=== PATIENT | female | born 1940 | race Caucasian/White ===

== ENCOUNTER 2019-02-02 06:25 | Inpatient (IN) ==
[2019-01-28 13:05] LABS: Basophils # 0.1 10*3/uL (0.0-0.2); Basophils % 0.7 % (0.0-0.8); Eosinophils # 0.2 10*3/uL (0.0-0.87); Eosinophils % 2.4 % (0.00-10.9); Hematocrit 32.3 VOL% (35.7-47.0); Hemoglobin 10.3 GM/DL (12.0-16.0); Immature Granulocytes % 0.1 %; Immature Granulocytes Absolute 0.01 #; Lymphocytes # 1.4 10*3/uL (1.4-4.0); Lymphocytes % 20.2 % (21.3-54.2); Mean Corpuscular HGB Conc 31.9 GM/DL (32-36); Mean Platelet Volume 10.2 FL (9.6-12.0); Monocytes % 4.9 % (1.7-12.7); Neutrophils % 71.7 % (38.7-73.9); Platelet Count 330 T/CUMM (130-400); Red Blood Count 3.59 MC/CUMM (3.8-5.5); White Blood Count 6.8 T/CUMM (4-12)
[2019-01-28 13:22] LABS: Albumin 4.2 G/DL (3.4-5.0); Bilirubin,Total 0.8 MG/DL (0.2-1.0); Calcium 9.1 MG/DL (8.5-10.1); Osmolality,Calculated 282.3 MOS/KG (273-304); Total Protein 7.3 G/DL (6.4-8.3)
[~2019-02-02 06:25] MED LIST: DIAZEPAM 5 MG TABLET PO ONE; FAMOTIDINE 20 MG TABLET PO ONE; ceFAZolin 1,000 MG in SYRINGE 1 EACH IV ONE
[2019-02-02] MEDS ORDERED: LACTATED RINGERS 1,000 ML IV SCH (07:30)
[2019-02-02] MEDS ORDERED: FAMOTIDINE 20 MG TABLET ONE (07:34)
[2019-02-02] MEDS ORDERED: ceFAZolin 1,000 MG VIAL ONE (07:34)
[2019-02-02] MEDS ORDERED: DIAZEPAM 5 MG TABLET ONE (07:34)
[2019-02-02] MEDS ORDERED: LIDOCAINE 1% 20 ML VIAL ONE (07:46)
[2019-02-02] MEDS ORDERED: HEPARIN 5,000 UNIT/1 ML VIAL ONE (07:46)
[2019-02-02] MEDS ORDERED: BUPIVACAINE 0.5% 50 ML VIAL ONE (08:10)
[2019-02-02] MEDS ORDERED: EPINEPHrine 1 MG/ML VIAL ONE (08:10)
[2019-02-02] MEDS ORDERED: GLUCAGON 1 MG VIAL IM PRN (09:53)
[2019-02-02] MEDS ORDERED: ONDANSETRON 4 MG/2 ML VIAL IV PRN (09:53)
[2019-02-02] MEDS ORDERED: DEXTROSE 50% 25 GM/50 ML VIAL IV PRN (09:53)
[2019-02-02] MEDS ORDERED: PROMETHAZINE 25 MG/1 ML VIAL IM PRN (09:53)
[2019-02-02] MEDS ORDERED: NALOXONE 0.4 MG/ML VIAL IV PRN (09:53)
[2019-02-02] MEDS ORDERED: oxyCODONE/ACETAMINOPHEN 5-325 MG TABLET PO PRN (09:53)
[2019-02-02] MEDS ORDERED: HYDROmorphone 2 MG/1 ML VIAL IV PRN ×2 (09:53)
[2019-02-02] MEDS ORDERED: FUROSEMIDE 20 MG TABLET PO PRN (09:55)
[2019-02-02] MEDS ORDERED: LINACLOTIDE 145 MCG CAPSULE PO PRN (09:55)
[2019-02-02] MEDS ORDERED: PHENYLEPHRINE DRIP 40 MG/250 ML PREMIX IV SCH (10:00)
[2019-02-02] MEDS ORDERED: NITROPRUSSIDE 100 MG in DEXTROSE 5% 250 ML IV SCH (10:00)
[2019-02-02] MEDS ORDERED: fentaNYL 100 MCG/2 ML VIAL ONE (10:18)
[2019-02-02] MEDS ORDERED: ONDANSETRON 4 MG/2 ML VIAL ONE (10:18)
[2019-02-02] MEDS ORDERED: SEVOFLURANE 1 UNIT/15 MINUTE INH ONE (10:18)
[2019-02-02] MEDS ORDERED: MIDAZOLAM 2 MG/2 ML VIAL ONE (10:18)
[2019-02-02] MEDS ORDERED: PHENYLEPHRINE 0.5% NASAL SPRAY 15 ML BOTTLE BOTH NARES ONE (10:18)
[2019-02-02] MEDS ORDERED: NITROGLYCERIN DRIP 50 MG/250 ML BOTTLE IV ONE (10:19)
[2019-02-02] MEDS ORDERED: methylPREDNISolone SOD SUC 125 MG/2 ML VIAL ONE (10:19)
[2019-02-02] MEDS ORDERED: NEOSTIGMINE 10 MG/10 ML VIAL ONE (10:19)
[2019-02-02] MEDS ORDERED: LACTATED RINGERS 1,000 ML IV ONE (10:19)
[2019-02-02] MEDS ORDERED: ETOMIDATE 40 MG/20 ML VIAL IV ONE (10:19)
[2019-02-02] MEDS ORDERED: ROCURONIUM 100 MG/10 ML VIAL IV ONE (10:19)
[2019-02-02] MEDS ORDERED: PROTAMINE SULFATE 50 MG/5 ML VIAL IV ONE (10:20)
[2019-02-02] MEDS: oxyCODONE/ACETAMINOPHEN 5-325 MG TABLET PO PRN (11:52)
[2019-02-02] MEDS: LACTATED RINGERS 1,000 ML IV SCH ×2 (13:30→21:47)
[2019-02-02 19:02] VITALS: BP 160/64
[2019-02-02] MEDS: LOSARTAN 50 MG TABLET PO SCH (21:35)
[2019-02-02] MEDS: CARVEDILOL 6.25 MG TABLET PO SCH (21:35)
[2019-02-03] MEDS: oxyCODONE/ACETAMINOPHEN 5-325 MG TABLET PO PRN (04:01)
[2019-02-03] MEDS: LACTATED RINGERS 1,000 ML IV SCH (06:51)
[2019-02-03] MEDS ORDERED: ATORVASTATIN 40 MG TABLET PO SCH (09:00)
[2019-02-03] MEDS ORDERED: ASPIRIN EC 81 MG TABLET PO SCH ×2 (09:00)
[2019-02-03] MEDS ORDERED: CLOPIDOGREL 75 MG TABLET PO SCH (09:00)
[2019-02-03] MEDS: LOSARTAN 50 MG TABLET PO SCH (10:09)
[2019-02-03] MEDS: CARVEDILOL 6.25 MG TABLET PO SCH (10:10)
[2019-02-04] MEDS ORDERED: predniSONE 5 MG TABLET PO SCH (09:00)
[2019-02-09] MEDS ORDERED: NON-FORMULARY MEDICATION (Alendronate 70 MG) PO SCH (09:00)
== END 2019-02-03 13:35 | disposition home or self-care (01) | DRG 39 ==
LOC: N.SDSINP 06:25 → N.ICU 10:13
PROVIDERS: ADMIT Surgery; ATTEND Surgery

== ENCOUNTER 2021-01-21 08:50 | Inpatient (IN) ==
[2021-01-21 09:19] LABS: Basophils # 0.1 10*3/uL (0.0-0.2); Basophils % 0.8 % (0.0-0.8); Eosinophils # 0.2 10*3/uL (0.0-0.87); Eosinophils % 2.3 % (0.00-10.9); Hemoglobin 8.6 GM/DL (12.0-16.0); Immature Granulocytes % 0.4 %; Immature Granulocytes Absolute 0.03 #; Lymphocytes # 1.5 10*3/uL (1.4-4.0); Lymphocytes % 19.3 % (21.3-54.2); Mean Corpuscular HGB Conc 29.7 GM/DL (32-36); Mean Corpuscular Volume 82.9 FL (87-102); Monocytes % 6.7 % (1.7-12.7); Neutrophils % 70.5 % (38.7-73.9); Platelet Count 398 T/CUMM (130-400); Red Cell Distribution Width 17.1 % (9.3-17.3); White Blood Count 7.9 T/CUMM (4-12)
[2021-01-21 09:33] LABS: INR 1.1; PT Patient Result 12.2 SECS (10.5-12.0)
[2021-01-21 09:54] LABS: Albumin 3.6 G/DL (3.4-5.0); Bilirubin,Total 0.9 MG/DL (0.20-1.00); Calcium 8.8 MG/DL (8.5-10.1); Osmolality,Calculated 279.7 MOS/KG (273-304); Potassium 4.5 MMOL/L (3.5-5.1); Total Protein 6.8 G/DL (6.4-8.2)
[2021-01-21] MEDS ORDERED: FUROSEMIDE 40 MG/4 ML VIAL IV STA ×2 (11:44→13:18)
[2021-01-21] MEDS ORDERED: GLUCAGON 1 MG VIAL IM PRN (12:22)
[2021-01-21] MEDS ORDERED: DEXTROSE 50% 25 GM/50 ML VIAL IV PRN (12:22)
[2021-01-21] MEDS ORDERED: MORPHINE 2 MG/1 ML SYRINGE IV STA (13:08)
[2021-01-21] MEDS ORDERED: ONDANSETRON 4 MG/2 ML VIAL IV STA (13:08)
[2021-01-21] MEDS: ENOXAPARIN 40 MG/0.4 ML SYRINGE SUBCUT SCH (13:15)
[2021-01-21] MEDS: ASPIRIN EC 81 MG TABLET PO SCH (18:35)
[2021-01-21] MEDS ORDERED: LEVOFLOXACIN INJ 500 MG/100 ML PREMIX IV SCH (20:30)
[2021-01-21] MEDS ORDERED: carvediloL 3.125 MG TABLET PO SCH (21:00)
[2021-01-21] MEDS ORDERED: FUROSEMIDE 40 MG/4 ML VIAL IV SCH (21:00)
[2021-01-21] MEDS: GABAPENTIN 100 MG CAPSULE PO SCH (22:30)
[2021-01-21] MEDS ORDERED: FUROSEMIDE 20 MG/2 ML VIAL IV ONE (23:38)
[2021-01-21] MEDS ORDERED: FUROSEMIDE 20 MG/2 ML VIAL IV STA (23:39)
[2021-01-22] MEDS ORDERED: SODIUM CHLORIDE 0.9% 250 ML IV STA (00:29)
[2021-01-22 00:36] LABS: Bilirubin,Urine Negative (Negative); Blood, Urine Small mg/dL (Negative); Glucose,Urine (UA) Negative (Negative); Hyaline Casts,Urine 7 /LPF (0-3); Ketones,Urine Negative (Negative); Mucus,Urine Occasional /LPF (Occasional); Nitrite,Urine Negative (Negative); Protein,Urine Negative; RBC,Urine 4 /HPF (0-4); Squamous Epithelial Cell,Urine Occasional /HPF (0-10); Urine Appearance CLEAR (Clear); Urine Color Straw (Yellow); Urine Specific Gravity 1.005 (1.001-1.035); Urine Urobilinogen < 2.0 EU/DL (0.2-1.0)
[2021-01-22] MEDS: PHENYLEPHRINE DRIP 40 MG/250 ML PREMIX IV PRN ×2 (02:28→16:56)
[2021-01-22 06:27] LABS: Basophils # 0.1 10*3/uL (0.0-0.2); Basophils % 0.8 % (0.0-0.8); Eosinophils # 0.3 10*3/uL (0.0-0.87); Eosinophils % 3.4 % (0.00-10.9); Hematocrit 25.9 VOL% (35.7-47.0); Immature Granulocytes % 0.3 %; Immature Granulocytes Absolute 0.02 #; Lymphocytes # 1.8 10*3/uL (1.4-4.0); Lymphocytes % 24.3 % (21.3-54.2); Mean Corpuscular HGB Conc 30.9 GM/DL (32-36); Mean Platelet Volume 10.3 FL (9.6-12.0); Monocytes % 12.3 % (1.7-12.7); Neutrophils % 58.9 % (38.7-73.9); Platelet Count 357 T/CUMM (130-400); Red Blood Count 3.16 MC/CUMM (3.8-5.5); White Blood Count 7.4 T/CUMM (4-12)
[2021-01-22 06:46] LABS: Calcium 8.2 MG/DL (8.5-10.1); Osmolality,Calculated 279.5 MOS/KG (273-304); Potassium 3.9 MMOL/L (3.5-5.1)
[2021-01-22 06:50] LABS: % Iron Saturation 5.6 % (18-50); Ferritin 13.4 ng/ml (8-252)
[2021-01-22 07:18] LABS: Folate 14.52 NG/ML (5.38-24.0); Vitamin B12 278 PG/ML (211-911)
[2021-01-22 07:34] LABS: Sedimentation Rate-Westergren 27 MM/HR (0-30)
[2021-01-22] MEDS: ASPIRIN EC 81 MG TABLET PO SCH (08:59)
[2021-01-22] MEDS: GABAPENTIN 100 MG CAPSULE PO SCH ×3 (09:00→21:23)
[2021-01-22] MEDS: ATORVASTATIN 40 MG TABLET PO SCH (09:00)
[2021-01-22 09:07] LABS: Free T4 (Free Thyroxine) 1.11 NG/DL (0.76-1.46); Thyroid Stimulating Hormone 2.46 uIU/ml (0.358-3.74)
[2021-01-22 10:44] LABS: Hemoglobin A1 (Alkaline) 98.1 % (96.5-98.5); Hemoglobin A2 (Alkaline) 1.9 % (1.5-3.5)
[2021-01-22] MEDS: ALBUTEROL/IPRATROPIUM 3 ML NEB RESP TX SCH ×2 (12:01→19:45)
[2021-01-22] MEDS ORDERED: MAGNESIUM SULF RIDER 4 GM/100 ML PREMIX IV PRN (12:26)
[2021-01-22] MEDS ORDERED: MAGNESIUM SULF RIDER 2 GM/50 ML PREMIX IV PRN (12:26)
[2021-01-22] MEDS ORDERED: IRON SUCROSE 200 MG in SODIUM CHLORIDE 0.9% 100 ML IV ONE (12:47)
[2021-01-22] MEDS: ENOXAPARIN 40 MG/0.4 ML SYRINGE SUBCUT SCH (12:58)
[2021-01-22] MEDS ORDERED: FERRIC GLUCONATE COMPLEX 125 MG in SODIUM CHLORIDE 0.9% 100 ML IV ONE (13:30)
[2021-01-23] MEDS: PHENYLEPHRINE DRIP 40 MG/250 ML PREMIX IV PRN ×2 (01:28→11:40)
[2021-01-23] MEDS: ALBUTEROL/IPRATROPIUM 3 ML NEB RESP TX SCH ×4 (05:37→18:05)
[2021-01-23 05:41] LABS: Basophils # 0.1 10*3/uL (0.0-0.2); Basophils % 0.7 % (0.0-0.8); Eosinophils # 0.4 10*3/uL (0.0-0.87); Eosinophils % 4.3 % (0.00-10.9); Hematocrit 26.2 VOL% (35.7-47.0); Hemoglobin 8.1 GM/DL (12.0-16.0); Immature Granulocytes % 0.3 %; Immature Granulocytes Absolute 0.03 #; Lymphocytes # 2.5 10*3/uL (1.4-4.0); Lymphocytes % 25.1 % (21.3-54.2); Mean Corpuscular HGB Conc 30.9 GM/DL (32-36); Mean Corpuscular Volume 83.7 FL (87-102); Monocytes % 12.1 % (1.7-12.7); Neutrophils % 57.5 % (38.7-73.9); Platelet Count 348 T/CUMM (130-400); Red Blood Count 3.13 MC/CUMM (3.8-5.5); Red Cell Distribution Width 17.3 % (9.3-17.3); White Blood Count 9.9 T/CUMM (4-12)
[2021-01-23 06:15] LABS: Calcium 8.4 MG/DL (8.5-10.1); Osmolality,Calculated 276.7 MOS/KG (273-304); Potassium 3.8 MMOL/L (3.5-5.1)
[2021-01-23] MEDS: predniSONE 5 MG TABLET PO SCH (08:26)
[2021-01-23] MEDS: GABAPENTIN 100 MG CAPSULE PO SCH ×3 (08:26→21:33)
[2021-01-23] MEDS: FERROUS SULFATE ER 140 MG TABLET PO SCH ×2 (08:26→21:33)
[2021-01-23] MEDS: ATORVASTATIN 40 MG TABLET PO SCH (08:26)
[2021-01-23] MEDS: ASPIRIN EC 81 MG TABLET PO SCH (08:26)
[2021-01-23] MEDS: MIDODRINE 5 MG TABLET PO SCH ×3 (08:56→21:33)
[2021-01-23] MEDS: ENOXAPARIN 40 MG/0.4 ML SYRINGE SUBCUT SCH (11:41)
[2021-01-24] MEDS: ALBUTEROL/IPRATROPIUM 3 ML NEB RESP TX SCH ×4 (00:30→19:15)
[2021-01-24 04:35] LABS: Basophils # 0.1 10*3/uL (0.0-0.2); Basophils % 0.9 % (0.0-0.8); Eosinophils # 0.3 10*3/uL (0.0-0.87); Hematocrit 24.7 VOL% (35.7-47.0); Hemoglobin 7.5 GM/DL (12.0-16.0); Immature Granulocytes % 0.5 %; Immature Granulocytes Absolute 0.04 #; Lymphocytes # 2.2 10*3/uL (1.4-4.0); Lymphocytes % 28.1 % (21.3-54.2); Mean Corpuscular HGB Conc 30.4 GM/DL (32-36); Mean Platelet Volume 10.3 FL (9.6-12.0); Monocytes % 11.4 % (1.7-12.7); Neutrophils % 55.1 % (38.7-73.9); Platelet Count 310 T/CUMM (130-400); Red Blood Count 2.94 MC/CUMM (3.8-5.5); Red Cell Distribution Width 17.2 % (9.3-17.3)
[2021-01-24 05:28] LABS: Calcium 8.3 MG/DL (8.5-10.1); Osmolality,Calculated 276.7 MOS/KG (273-304); Potassium 3.5 MMOL/L (3.5-5.1)
[2021-01-24] MEDS: FERROUS SULFATE ER 140 MG TABLET PO SCH (08:11)
[2021-01-24] MEDS: ATORVASTATIN 40 MG TABLET PO SCH (08:11)
[2021-01-24] MEDS: MIDODRINE 5 MG TABLET PO SCH ×3 (08:11→20:41)
[2021-01-24] MEDS: ASPIRIN EC 81 MG TABLET PO SCH (08:11)
[2021-01-24] MEDS: GABAPENTIN 100 MG CAPSULE PO SCH ×3 (08:11→20:41)
[2021-01-24] MEDS: predniSONE 5 MG TABLET PO SCH (08:11)
[2021-01-24] MEDS: ENOXAPARIN 40 MG/0.4 ML SYRINGE SUBCUT SCH (11:45)
[2021-01-24] MEDS: FERROUS SULFATE 325 MG TABLET PO SCH (16:07)
[2021-01-25] MEDS: ALBUTEROL/IPRATROPIUM 3 ML NEB RESP TX SCH ×4 (00:02→19:25)
[2021-01-25] MEDS ORDERED: CLORAZEPATE 3.75 MG TABLET PO ONE (01:36)
[2021-01-25] MEDS ORDERED: AMIODARONE INJ 150 MG in DEXTROSE 5% 100 ML IV ONE (02:21)
[2021-01-25] MEDS ORDERED: AMIODARONE 150 MG/3 ML VIAL ONE (02:24)
[2021-01-25] MEDS ORDERED: AMIODARONE 450 MG/9 ML VIAL IV ONE (02:25)
[2021-01-25] MEDS ORDERED: AMIODARONE INJ 450 MG in DEXTROSE 5% 241 ML IV SCH ×2 (02:30→11:50)
[2021-01-25 02:43] LABS: ABG Base Excess -4.4 MMOL/L (-2.5-2.5); ABG HCO3 20.7 MMOL/L (20-26); ABG PCO2 37.7 MM HG (35-48); ABG PH 7.357 (7.35-7.45); ABG PO2 186.5 MM HG (80-95); ABG TCO2 21.8 MMOL/L (23-27)
[2021-01-25 04:42] LABS: Basophils # 0.1 10*3/uL (0.0-0.2); Basophils % 0.4 % (0.0-0.8); Eosinophils # 0.2 10*3/uL (0.0-0.87); Eosinophils % 1.3 % (0.00-10.9); Hematocrit 28.4 VOL% (35.7-47.0); Hemoglobin 8.6 GM/DL (12.0-16.0); Immature Granulocytes % 0.6 %; Immature Granulocytes Absolute 0.09 #; Lymphocytes # 1.4 10*3/uL (1.4-4.0); Lymphocytes % 9.5 % (21.3-54.2); Mean Corpuscular HGB Conc 30.3 GM/DL (32-36); Mean Corpuscular Volume 84.3 FL (87-102); Mean Platelet Volume 10.9 FL (9.6-12.0); Monocytes % 8.8 % (1.7-12.7); Neutrophils % 79.4 % (38.7-73.9); Platelet Count 340 T/CUMM (130-400); Red Blood Count 3.37 MC/CUMM (3.8-5.5); Red Cell Distribution Width 17.5 % (9.3-17.3); White Blood Count 14.3 T/CUMM (4-12)
[2021-01-25 05:49] LABS: Calcium 8.6 MG/DL (8.5-10.1); Osmolality,Calculated 275.1 MOS/KG (273-304); Potassium 3.7 MMOL/L (3.5-5.1)
[2021-01-25] MEDS ORDERED: MAGNESIUM SULF RIDER 2 GM/50 ML PREMIX IV PRN (07:02)
[2021-01-25] MEDS ORDERED: MAGNESIUM SULF RIDER 4 GM/100 ML PREMIX IV PRN (07:02)
[2021-01-25] MEDS: CETIRIZINE 10 MG TABLET PO SCH (09:31)
[2021-01-25] MEDS: ATORVASTATIN 40 MG TABLET PO SCH (09:31)
[2021-01-25] MEDS: POTASSIUM CHLORIDE 20 MEQ TABLET PO PRN (09:31)
[2021-01-25] MEDS: MULTIVITAMIN (CENTRUM) TABLET PO SCH (09:32)
[2021-01-25] MEDS: GABAPENTIN 100 MG CAPSULE PO SCH ×3 (09:32→20:35)
[2021-01-25] MEDS: PANTOPRAZOLE 40 MG TABLET PO SCH (09:32)
[2021-01-25] MEDS: predniSONE 5 MG TABLET PO SCH (09:32)
[2021-01-25] MEDS: FERROUS SULFATE 325 MG TABLET PO SCH ×2 (09:32→16:58)
[2021-01-25] MEDS: ASPIRIN EC 81 MG TABLET PO SCH (09:32)
[2021-01-25] MEDS: ENOXAPARIN 40 MG/0.4 ML SYRINGE SUBCUT SCH (13:55)
[2021-01-25] MEDS: AMIODARONE 200 MG TABLET PO SCH ×2 (15:15→20:35)
[2021-01-25] MEDS: CLORAZEPATE 3.75 MG TABLET PO PRN (21:50)
[2021-01-26] MEDS: ALBUTEROL/IPRATROPIUM 3 ML NEB RESP TX SCH ×4 (00:02→21:20)
[2021-01-26 04:10] LABS: Basophils # 0.1 10*3/uL (0.0-0.2); Basophils % 0.5 % (0.0-0.8); Eosinophils # 0.2 10*3/uL (0.0-0.87); Eosinophils % 1.8 % (0.00-10.9); Hematocrit 25.6 VOL% (35.7-47.0); Hemoglobin 7.9 GM/DL (12.0-16.0); Immature Granulocytes % 0.4 %; Immature Granulocytes Absolute 0.04 #; Lymphocytes # 1.9 10*3/uL (1.4-4.0); Lymphocytes % 17.4 % (21.3-54.2); Mean Corpuscular HGB Conc 30.9 GM/DL (32-36); Mean Corpuscular Volume 81.8 FL (87-102); Mean Platelet Volume 10.2 FL (9.6-12.0); Monocytes % 10.5 % (1.7-12.7); Neutrophils % 69.4 % (38.7-73.9); Platelet Count 361 T/CUMM (130-400); Red Blood Count 3.13 MC/CUMM (3.8-5.5); Red Cell Distribution Width 17.6 % (9.3-17.3)
[2021-01-26 04:35] LABS: Calcium 8.6 MG/DL (8.5-10.1); Osmolality,Calculated 259.2 MOS/KG (273-304); Potassium 4.5 MMOL/L (3.5-5.1)
[2021-01-26] MEDS: GABAPENTIN 100 MG CAPSULE PO SCH ×3 (08:07→21:06)
[2021-01-26] MEDS: PANTOPRAZOLE 40 MG TABLET PO SCH (08:07)
[2021-01-26] MEDS: ATORVASTATIN 40 MG TABLET PO SCH (08:08)
[2021-01-26] MEDS: AMIODARONE 200 MG TABLET PO SCH ×2 (08:08→21:06)
[2021-01-26] MEDS: ASPIRIN EC 81 MG TABLET PO SCH (08:08)
[2021-01-26] MEDS: FERROUS SULFATE 325 MG TABLET PO SCH ×2 (08:08→16:17)
[2021-01-26] MEDS: predniSONE 5 MG TABLET PO SCH (08:08)
[2021-01-26] MEDS: CETIRIZINE 10 MG TABLET PO SCH (08:09)
[2021-01-26] MEDS: MULTIVITAMIN (CENTRUM) TABLET PO SCH (08:09)
[2021-01-26] MEDS: ENOXAPARIN 60 MG/0.6 ML SYRINGE SUBCUT SCH (08:16)
[2021-01-27] MEDS: ALBUTEROL/IPRATROPIUM 3 ML NEB RESP TX SCH ×4 (01:27→19:18)
[2021-01-27 05:38] LABS: Basophils % 0.4 % (0.0-0.8); Eosinophils # 0.3 10*3/uL (0.0-0.87); Eosinophils % 2.8 % (0.00-10.9); Hematocrit 24.9 VOL% (35.7-47.0); Hemoglobin 7.8 GM/DL (12.0-16.0); Immature Granulocytes % 0.6 %; Immature Granulocytes Absolute 0.05 #; Lymphocytes # 1.9 10*3/uL (1.4-4.0); Lymphocytes % 21.2 % (21.3-54.2); Mean Corpuscular HGB Conc 31.3 GM/DL (32-36); Mean Corpuscular Volume 82.2 FL (87-102); Mean Platelet Volume 11.3 FL (9.6-12.0); Monocytes % 11.7 % (1.7-12.7); Neutrophils % 63.3 % (38.7-73.9); Platelet Count 316 T/CUMM (130-400); Red Blood Count 3.03 MC/CUMM (3.8-5.5); Red Cell Distribution Width 18.1 % (9.3-17.3)
[2021-01-27 05:51] LABS: Calcium 8.4 MG/DL (8.5-10.1); Osmolality,Calculated 256.4 MOS/KG (273-304); Potassium 3.9 MMOL/L (3.5-5.1)
[2021-01-27] MEDS: ATORVASTATIN 40 MG TABLET PO SCH (08:47)
[2021-01-27] MEDS: CETIRIZINE 10 MG TABLET PO SCH (08:48)
[2021-01-27] MEDS: GABAPENTIN 100 MG CAPSULE PO SCH ×3 (08:48→20:51)
[2021-01-27] MEDS: AMIODARONE 200 MG TABLET PO SCH ×2 (08:48→20:51)
[2021-01-27] MEDS: PANTOPRAZOLE 40 MG TABLET PO SCH (08:48)
[2021-01-27] MEDS: MULTIVITAMIN (CENTRUM) TABLET PO SCH (08:48)
[2021-01-27] MEDS: FERROUS SULFATE 325 MG TABLET PO SCH ×2 (08:48→17:19)
[2021-01-27] MEDS: predniSONE 5 MG TABLET PO SCH (08:48)
[2021-01-27] MEDS: POTASSIUM CHLORIDE 20 MEQ TABLET PO PRN (08:48)
[2021-01-27] MEDS: ASPIRIN EC 81 MG TABLET PO SCH (08:49)
[2021-01-27] MEDS: ENOXAPARIN 60 MG/0.6 ML SYRINGE SUBCUT SCH (08:54)
[2021-01-28] MEDS: ALBUTEROL/IPRATROPIUM 3 ML NEB RESP TX SCH ×4 (01:10→20:51)
[2021-01-28 06:22] LABS: Basophils % 0.4 % (0.0-0.8); Eosinophils # 0.3 10*3/uL (0.0-0.87); Eosinophils % 3.1 % (0.00-10.9); Hematocrit 24.5 VOL% (35.7-47.0); Hemoglobin 7.6 GM/DL (12.0-16.0); Immature Granulocytes % 0.3 %; Immature Granulocytes Absolute 0.03 #; Lymphocytes # 2.4 10*3/uL (1.4-4.0); Lymphocytes % 25.3 % (21.3-54.2); Mean Corpuscular Volume 82.2 FL (87-102); Mean Platelet Volume 10.3 FL (9.6-12.0); Monocytes % 12.9 % (1.7-12.7); Platelet Count 322 T/CUMM (130-400); Red Blood Count 2.98 MC/CUMM (3.8-5.5); Red Cell Distribution Width 18.7 % (9.3-17.3); White Blood Count 9.3 T/CUMM (4-12)
[2021-01-28 06:58] LABS: Calcium 8.4 MG/DL (8.5-10.1); Osmolality,Calculated 256.4 MOS/KG (273-304); Potassium 4.4 MMOL/L (3.5-5.1)
[2021-01-28] MEDS: ENOXAPARIN 60 MG/0.6 ML SYRINGE SUBCUT SCH (08:10)
[2021-01-28] MEDS: PANTOPRAZOLE 40 MG TABLET PO SCH (08:55)
[2021-01-28] MEDS: ATORVASTATIN 40 MG TABLET PO SCH (08:55)
[2021-01-28] MEDS: CETIRIZINE 10 MG TABLET PO SCH (08:55)
[2021-01-28] MEDS: MULTIVITAMIN (CENTRUM) TABLET PO SCH (08:55)
[2021-01-28] MEDS: AMIODARONE 200 MG TABLET PO SCH ×2 (08:55→20:57)
[2021-01-28] MEDS: predniSONE 5 MG TABLET PO SCH (08:56)
[2021-01-28] MEDS: ASPIRIN EC 81 MG TABLET PO SCH (08:56)
[2021-01-28] MEDS: GABAPENTIN 100 MG CAPSULE PO SCH ×3 (08:56→20:57)
[2021-01-28] MEDS: FERROUS SULFATE 325 MG TABLET PO SCH ×2 (08:56→16:03)
[2021-01-28 17:52] LABS: Bacteria,Urine Occasional /HPF (Few); Bilirubin,Urine Negative (Negative); Blood, Urine Small mg/dL (Negative); Glucose,Urine (UA) Negative (Negative); Ketones,Urine Negative (Negative); Mucus,Urine Occasional /LPF (Occasional); Nitrite,Urine Negative (Negative); Protein,Urine Negative; RBC,Urine 22 /HPF (0-4); Squamous Epithelial Cell,Urine Occasional /HPF (0-10); Urine Appearance Slightly Hazy (Clear); Urine Color Yellow (Yellow); Urine Specific Gravity 1.025 (1.001-1.035); Urine Urobilinogen < 2.0 EU/DL (0.2-1.0)
[2021-01-29] MEDS: ALBUTEROL/IPRATROPIUM 3 ML NEB RESP TX SCH ×4 (01:40→19:28)
[2021-01-29] MEDS: LINACLOTIDE 145 MCG CAPSULE PO PRN (06:29)
[2021-01-29 07:55] LABS: Basophils % 0.3 % (0.0-0.8); Eosinophils # 0.2 10*3/uL (0.0-0.87); Eosinophils % 2.6 % (0.00-10.9); Hemoglobin 7.7 GM/DL (12.0-16.0); Immature Granulocytes % 0.3 %; Immature Granulocytes Absolute 0.03 #; Lymphocytes # 1.5 10*3/uL (1.4-4.0); Mean Corpuscular HGB Conc 30.8 GM/DL (32-36); Mean Corpuscular Volume 82.8 FL (87-102); Mean Platelet Volume 9.8 FL (9.6-12.0); Monocytes % 12.2 % (1.7-12.7); Neutrophils % 67.6 % (38.7-73.9); Platelet Count 333 T/CUMM (130-400); Red Blood Count 3.02 MC/CUMM (3.8-5.5); Red Cell Distribution Width 18.6 % (9.3-17.3)
[2021-01-29 08:15] LABS: Calcium 8.4 MG/DL (8.5-10.1); Osmolality,Calculated 245.1 MOS/KG (273-304); Potassium 4.3 MMOL/L (3.5-5.1)
[2021-01-29] MEDS ORDERED: MAGNESIUM HYDROXIDE SUSP 30 ML UDCUP PO ONE (08:19)
[2021-01-29] MEDS: FERROUS SULFATE 325 MG TABLET PO SCH ×2 (09:18→16:34)
[2021-01-29] MEDS: predniSONE 5 MG TABLET PO SCH (09:19)
[2021-01-29] MEDS: ATORVASTATIN 40 MG TABLET PO SCH (09:19)
[2021-01-29] MEDS: AMIODARONE 200 MG TABLET PO SCH ×2 (09:20→20:56)
[2021-01-29] MEDS: PANTOPRAZOLE 40 MG TABLET PO SCH (09:22)
[2021-01-29] MEDS: GABAPENTIN 100 MG CAPSULE PO SCH ×3 (09:23→20:56)
[2021-01-29] MEDS: MULTIVITAMIN (CENTRUM) TABLET PO SCH (09:24)
[2021-01-29] MEDS: ASPIRIN EC 81 MG TABLET PO SCH (09:24)
[2021-01-29] MEDS: CETIRIZINE 10 MG TABLET PO SCH (09:25)
[2021-01-29] MEDS: PSYLLIUM POWDER 3.7 GM/PACK PO SCH (09:26)
[2021-01-29 11:14] LABS: Calcium 8.4 MG/DL (8.5-10.1); Osmolality,Calculated 252.6 MOS/KG (273-304); Potassium 4.3 MMOL/L (3.5-5.1)
[2021-01-29] MEDS: SODIUM CHLORIDE 0.9% 1,000 ML IV SCH (16:59)
[2021-01-29] MEDS: LACTULOSE 20 GM/30 ML UDCUP PO SCH (20:56)
[2021-01-30] MEDS: ALBUTEROL/IPRATROPIUM 3 ML NEB RESP TX SCH ×4 (00:37→19:05)
[2021-01-30 04:28] LABS: Basophils % 0.2 % (0.0-0.8); Eosinophils # 0.1 10*3/uL (0.0-0.87); Eosinophils % 1.2 % (0.00-10.9); Hematocrit 23.3 VOL% (35.7-47.0); Hemoglobin 7.4 GM/DL (12.0-16.0); Immature Granulocytes % 0.6 %; Immature Granulocytes Absolute 0.05 #; Lymphocytes # 1.2 10*3/uL (1.4-4.0); Lymphocytes % 13.8 % (21.3-54.2); Mean Corpuscular HGB Conc 31.8 GM/DL (32-36); Mean Corpuscular Volume 81.5 FL (87-102); Mean Platelet Volume 10.3 FL (9.6-12.0); Monocytes % 11.6 % (1.7-12.7); Neutrophils % 72.6 % (38.7-73.9); Platelet Count 320 T/CUMM (130-400); Red Blood Count 2.86 MC/CUMM (3.8-5.5); Red Cell Distribution Width 18.6 % (9.3-17.3); White Blood Count 8.5 T/CUMM (4-12)
[2021-01-30 04:50] LABS: Calcium 8.1 MG/DL (8.5-10.1); Osmolality,Calculated 241.3 MOS/KG (273-304); Potassium 4.2 MMOL/L (3.5-5.1)
[2021-01-30] MEDS: SODIUM CHLORIDE 0.9% 1,000 ML IV SCH (07:00)
[2021-01-30] MEDS: ASPIRIN EC 81 MG TABLET PO SCH (09:32)
[2021-01-30] MEDS: AMIODARONE 200 MG TABLET PO SCH ×2 (09:35→21:38)
[2021-01-30] MEDS: ATORVASTATIN 40 MG TABLET PO SCH (09:35)
[2021-01-30] MEDS: MULTIVITAMIN (CENTRUM) TABLET PO SCH (09:35)
[2021-01-30] MEDS: predniSONE 5 MG TABLET PO SCH (09:35)
[2021-01-30] MEDS: PANTOPRAZOLE 40 MG TABLET PO SCH (09:35)
[2021-01-30] MEDS: CETIRIZINE 10 MG TABLET PO SCH (09:35)
[2021-01-30] MEDS: GABAPENTIN 100 MG CAPSULE PO SCH ×3 (09:35→21:38)
[2021-01-30] MEDS: FERROUS SULFATE 325 MG TABLET PO SCH ×2 (09:35→18:30)
[2021-01-30] MEDS: PSYLLIUM POWDER 3.7 GM/PACK PO SCH (09:36)
[2021-01-30] MEDS: LACTULOSE 20 GM/30 ML UDCUP PO SCH ×2 (09:36→21:38)
[2021-01-30 09:40] LABS: Calcium 8.1 MG/DL (8.5-10.1); Osmolality,Calculated 250.6 MOS/KG (273-304); Potassium 4.5 MMOL/L (3.5-5.1)
[2021-01-30] MEDS: ONDANSETRON 4 MG/2 ML VIAL IV PRN (09:52)
[2021-01-30] MEDS: LINACLOTIDE 145 MCG CAPSULE PO PRN (09:53)
[2021-01-30] MEDS ORDERED: SODIUM CHLORIDE 0.9% 1,000 ML IV PRN (11:00)
[2021-01-30] MEDS ORDERED: FUROSEMIDE 20 MG/2 ML VIAL IV ONE (11:02)
[2021-01-30] MEDS ORDERED: FUROSEMIDE 40 MG/4 ML VIAL IV ONE (11:02)
[2021-01-30] MEDS ORDERED: ALBUTEROL/IPRATROPIUM 3 ML NEB RESP TX STA (14:37)
[2021-01-30] MEDS: CLORAZEPATE 3.75 MG TABLET PO PRN (15:22)
[2021-01-30] MEDS ORDERED: FUROSEMIDE 20 MG/2 ML VIAL IV STA (15:48)
[2021-01-30] MEDS ORDERED: ACETAMINOPHEN 325 MG TABLET PO ONE (15:51)
[2021-01-30] MEDS ORDERED: diphenhydrAMINE 50 MG/1 ML VIAL IV ONE (15:52)
[2021-01-30 16:37] LABS: ABG Base Excess -5.8 MMOL/L (-2.5-2.5); ABG HCO3 19.5 MMOL/L (20-26); ABG Oxygen Saturation 91.2 % (95-100); ABG PCO2 37.2 MM HG (35-48); ABG PO2 67.1 MM HG (80-95); ABG TCO2 18.2 MMOL/L (23-27)
[2021-01-30] MEDS ORDERED: ACETAMINOPHEN 325 MG TABLET PO PRN (17:30)
[2021-01-30 17:54] LABS: Basophils % 0.1 % (0.0-0.8); Hematocrit 29.1 VOL% (35.7-47.0); Immature Granulocytes % 0.7 %; Immature Granulocytes Absolute 0.07 #; Lymphocytes # 0.5 10*3/uL (1.4-4.0); Lymphocytes % 5.7 % (21.3-54.2); Mean Corpuscular HGB Conc 30.9 GM/DL (32-36); Mean Corpuscular Volume 83.4 FL (87-102); Mean Platelet Volume 10.2 FL (9.6-12.0); Monocytes % 6.7 % (1.7-12.7); NRBC # 0.02 10*3/uL; Neutrophils % 86.8 % (38.7-73.9); Platelet Count 328 T/CUMM (130-400); Red Blood Count 3.49 MC/CUMM (3.8-5.5); Red Cell Distribution Width 18.6 % (9.3-17.3); White Blood Count 9.5 T/CUMM (4-12)
[2021-01-30 18:08] LABS: Blood Urea Nitrogen 19 MG/DL (7-18); Calcium 8.5 MG/DL (8.5-10.1); Carbon Dioxide 21 MMOL/L (21-32); Estimated Glom Filtration Rate 86 ML/MIN; Glucose 120 MG/DL (74-106); Osmolality,Calculated 244.2 MOS/KG (273-304); Potassium 4.4 MMOL/L (3.5-5.1)
[2021-01-30 18:13] LABS: Sodium 120 MMOL/L (136-145)
[2021-01-31] MEDS: ALBUTEROL/IPRATROPIUM 3 ML NEB RESP TX SCH ×4 (00:35→19:18)
[2021-01-31 07:10] LABS: Basophils % 0.2 % (0.0-0.8); Eosinophils # 0.1 10*3/uL (0.0-0.87); Hematocrit 28.6 VOL% (35.7-47.0); Hemoglobin 9.1 GM/DL (12.0-16.0); Immature Granulocytes % 0.3 %; Immature Granulocytes Absolute 0.03 #; Lymphocytes # 1.2 10*3/uL (1.4-4.0); Lymphocytes % 13.4 % (21.3-54.2); Mean Corpuscular HGB Conc 31.8 GM/DL (32-36); Mean Corpuscular Volume 82.4 FL (87-102); Mean Platelet Volume 10.5 FL (9.6-12.0); Monocytes % 13.2 % (1.7-12.7); Neutrophils % 71.9 % (38.7-73.9); Platelet Count 336 T/CUMM (130-400); Red Blood Count 3.47 MC/CUMM (3.8-5.5); Red Cell Distribution Width 18.4 % (9.3-17.3); White Blood Count 9.1 T/CUMM (4-12)
[2021-01-31 07:46] LABS: Calcium 8.3 MG/DL (8.5-10.1); Osmolality,Calculated 251.6 MOS/KG (273-304); Potassium 3.6 MMOL/L (3.5-5.1)
[2021-01-31] MEDS: ASPIRIN EC 81 MG TABLET PO SCH (09:26)
[2021-01-31] MEDS: CETIRIZINE 10 MG TABLET PO SCH (09:27)
[2021-01-31] MEDS: FUROSEMIDE 20 MG TABLET PO SCH ×2 (09:28→09:29)
[2021-01-31] MEDS: GABAPENTIN 100 MG CAPSULE PO SCH ×3 (09:28→20:42)
[2021-01-31] MEDS: ATORVASTATIN 40 MG TABLET PO SCH (09:28)
[2021-01-31] MEDS: LIDOCAINE 5% PATCH TRANSDERM SCH (09:28)
[2021-01-31] MEDS: predniSONE 5 MG TABLET PO SCH (09:28)
[2021-01-31] MEDS: FERROUS SULFATE 325 MG TABLET PO SCH ×2 (09:28→16:27)
[2021-01-31] MEDS: PANTOPRAZOLE 40 MG TABLET PO SCH (09:28)
[2021-01-31] MEDS: AMIODARONE 200 MG TABLET PO SCH ×2 (09:28→20:43)
[2021-01-31] MEDS: PSYLLIUM POWDER 3.7 GM/PACK PO SCH (09:28)
[2021-01-31] MEDS: MULTIVITAMIN (CENTRUM) TABLET PO SCH (09:29)
[2021-01-31] MEDS: LACTULOSE 20 GM/30 ML UDCUP PO SCH ×2 (09:29→20:43)
[2021-02-01] MEDS: ALBUTEROL/IPRATROPIUM 3 ML NEB RESP TX SCH ×2 (00:50→07:11)
[2021-02-01 05:43] LABS: Basophils % 0.1 % (0.0-0.8); Eosinophils # 0.1 10*3/uL (0.0-0.87); Hematocrit 28.3 VOL% (35.7-47.0); Hemoglobin 9.1 GM/DL (12.0-16.0); Immature Granulocytes % 0.4 %; Immature Granulocytes Absolute 0.04 #; Lymphocytes # 0.9 10*3/uL (1.4-4.0); Lymphocytes % 9.2 % (21.3-54.2); Mean Corpuscular HGB Conc 32.2 GM/DL (32-36); Mean Corpuscular Volume 80.6 FL (87-102); Mean Platelet Volume 10.1 FL (9.6-12.0); Monocytes % 12.5 % (1.7-12.7); NRBC # 0.03 10*3/uL; Neutrophils % 76.8 % (38.7-73.9); Platelet Count 355 T/CUMM (130-400); Red Blood Count 3.51 MC/CUMM (3.8-5.5); Red Cell Distribution Width 18.4 % (9.3-17.3); White Blood Count 10.2 T/CUMM (4-12)
[2021-02-01 06:13] LABS: Calcium 8.2 MG/DL (8.5-10.1); Osmolality,Calculated 246.1 MOS/KG (273-304); Potassium 3.4 MMOL/L (3.5-5.1)
[2021-02-01] MEDS ORDERED: TOLVAPTAN 15 MG TABLET PO SCH (09:00)
[2021-02-01] MEDS ORDERED: AMIODARONE 200 MG TABLET PO SCH (09:00)
[2021-02-01] MEDS: LIDOCAINE 5% PATCH TRANSDERM SCH (09:42)
[2021-02-01] MEDS: POTASSIUM CHLORIDE 20 MEQ TABLET PO PRN ×3 (09:43→13:43)
[2021-02-01] MEDS: ASPIRIN EC 81 MG TABLET PO SCH (09:43)
[2021-02-01] MEDS: FERROUS SULFATE 325 MG TABLET PO SCH (09:43)
[2021-02-01] MEDS: predniSONE 5 MG TABLET PO SCH (09:43)
[2021-02-01] MEDS: CETIRIZINE 10 MG TABLET PO SCH (09:43)
[2021-02-01] MEDS: FUROSEMIDE 20 MG TABLET PO SCH (09:43)
[2021-02-01] MEDS: ATORVASTATIN 40 MG TABLET PO SCH (09:43)
[2021-02-01] MEDS: LACTULOSE 20 GM/30 ML UDCUP PO SCH (09:44)
[2021-02-01] MEDS: PANTOPRAZOLE 40 MG TABLET PO SCH (09:44)
[2021-02-01] MEDS: MULTIVITAMIN (CENTRUM) TABLET PO SCH (09:44)
[2021-02-01] MEDS: GABAPENTIN 100 MG CAPSULE PO SCH (09:44)
[2021-02-01] MEDS: PSYLLIUM POWDER 3.7 GM/PACK PO SCH (09:44)
[2021-02-01] MEDS: ONDANSETRON 4 MG/2 ML VIAL IV PRN (10:14)
[2021-02-01 12:39] VITALS: BP 113/64
== END 2021-02-01 14:39 | DRG 291 ==
LOC: N.ED 08:50 → N.EDINP 08:50 → SUATTDRO 12:20 → N.ICU 01-22 13:05 → SUATTDRO 01-23 13:52 → N.TELEN 01-24 09:57 → N.ICU 01-25 02:06 → N.TELES 01-26 12:21
PROVIDERS: ADMIT Hospitalist; ATTEND Internal Medicine

== ENCOUNTER 2021-02-03 18:17 | Inpatient (IN) ==
[2021-02-03] MEDS ORDERED: SODIUM CHLORIDE 0.9% 1,000 ML IV STA (21:10)
[2021-02-03] MEDS ORDERED: ONDANSETRON 4 MG/2 ML VIAL IV STA (21:10)
[2021-02-03] MEDS ORDERED: MORPHINE 2 MG/1 ML SYRINGE IV STA (21:10)
[2021-02-03 21:40] LABS: Basophils % 0.1 % (0.0-0.8); Eosinophils % 0.1 % (0.00-10.9); Hematocrit 31.3 VOL% (35.7-47.0); Immature Granulocytes % 0.4 %; Immature Granulocytes Absolute 0.05 #; Lymphocytes # 0.4 10*3/uL (1.4-4.0); Mean Corpuscular HGB Conc 31.9 GM/DL (32-36); Mean Corpuscular Volume 81.5 FL (87-102); Mean Platelet Volume 11.9 FL (9.6-12.0); Monocytes % 4.7 % (1.7-12.7); Neutrophils % 91.7 % (38.7-73.9); Platelet Count 358 T/CUMM (130-400); Red Blood Count 3.84 MC/CUMM (3.8-5.5); Red Cell Distribution Width 19.9 % (9.3-17.3); White Blood Count 13.3 T/CUMM (4-12)
[2021-02-03] MEDS ORDERED: PIPERACILLIN/TAZOBACTAM 3,375 MG in SODIUM CHLORIDE 0.9% 100 ML IV STA (21:47)
[2021-02-03 21:51] LABS: INR 1.1; PT Patient Result 12.4 SECS (10.5-12.0)
[2021-02-03 22:39] LABS: Hypochromasia Slight; Lymphocytes 4 % (20-55); Microcytosis 1+; Platelet Estimate Increased; Polychromasia 1+; Segmented Neutrophils 88 % (50-85); Total Cells Counted 100
[2021-02-03 22:40] LABS: Acanthocytes Few; Anisocytosis 1+
[2021-02-03 22:41] LABS: Ovalocytes Slight; Schistocytes Slight
[2021-02-03 23:21] LABS: Potassium 4.7 MMOL/L (3.5-5.1)
[2021-02-03 23:23] LABS: Calcium 8.8 MG/DL (8.5-10.1)
[2021-02-03 23:24] LABS: Albumin 3.1 G/DL (3.4-5.0); Osmolality,Calculated 252.6 MOS/KG (273-304)
[2021-02-03 23:29] LABS: Bilirubin,Total 1.1 MG/DL (0.20-1.00); Total Protein 6.2 G/DL (6.4-8.2)
[2021-02-03] MEDS ORDERED: FUROSEMIDE 40 MG/4 ML VIAL IV STA (23:53)
[2021-02-04 00:35] LABS: Bilirubin,Urine Negative (Negative); Blood, Urine Negative (Negative); Glucose,Urine (UA) Negative (Negative); Hyaline Casts,Urine 6 /LPF (0-3); Ketones,Urine Negative (Negative); Nitrite,Urine Negative (Negative); Protein,Urine Negative; RBC,Urine 7 /HPF (0-4); Squamous Epithelial Cell,Urine Few /HPF (0-10); Transitional Epi Cells,Urine Occasional /HPF (<1); Urine Appearance Slightly Hazy (Clear); Urine Color Yellow (Yellow); Urine Specific Gravity 1.018 (1.001-1.035); Urine Urobilinogen < 2.0 EU/DL (0.2-1.0)
[2021-02-04] MEDS ORDERED: SODIUM CHLORIDE 0.9% 1,000 ML IV SCH (01:30)
[2021-02-04] MEDS ORDERED: AZITHROMYCIN INJ 500 MG in SODIUM CHLORIDE 0.9% 250 ML IV SCH (01:30)
[2021-02-04] MEDS ORDERED: VANCOMYCIN INJ 1,500 MG in SODIUM CHLORIDE 0.9% 250 ML IV ONE (01:30)
[2021-02-04] MEDS ORDERED: VANCOMYCIN INJ 1,000 MG in SODIUM CHLORIDE 0.9% 250 ML IV ONE (01:30)
[2021-02-04] MEDS ORDERED: VANCOMYCIN INJ 1,000 MG in SODIUM CHLORIDE 0.9% 250 ML IV SCH (01:30)
[2021-02-04] MEDS ORDERED: VANCOMYCIN INJ 1,500 MG in SODIUM CHLORIDE 0.9% 500 ML IV ONE (02:00)
[2021-02-04] MEDS ORDERED: DEXTROSE 50% 25 GM/50 ML VIAL IV PRN (02:16)
[2021-02-04] MEDS ORDERED: guaiFENesin/DM ER 600-30 MG TABLET PO PRN (02:16)
[2021-02-04] MEDS ORDERED: GLUCAGON 1 MG VIAL IM PRN (02:16)
[2021-02-04] MEDS ORDERED: ALBUTEROL 2.5 MG/3 ML NEB RESP TX PRN (02:16)
[2021-02-04] MEDS ORDERED: NICOTINE 21 MG/24 HR PATCH TRANSDERM PRN (02:16)
[2021-02-04] MEDS ORDERED: diphenhydrAMINE CAP 25 MG CAPSULE PO PRN (02:16)
[2021-02-04] MEDS ORDERED: hydrALAZINE 20 MG/1 ML VIAL IV PRN (02:16)
[2021-02-04 02:18] LABS: ABG Base Excess -1.5 MMOL/L (-2.5-2.5); ABG HCO3 23.1 MMOL/L (20-26); ABG Oxygen Saturation 92.9 % (95-100); ABG PCO2 46.4 MM HG (35-48); ABG PH 7.331 (7.35-7.45); ABG PO2 68.4 MM HG (80-95); ABG TCO2 22.8 MMOL/L (23-27)
[2021-02-04] MEDS ORDERED: NOREPINEPHRINE 8 MG in SODIUM CHLORIDE 0.9% 242 ML IV PRN (02:46)
[2021-02-04] MEDS: HEPARIN 5,000 UNIT/1 ML VIAL SUBCUT SCH ×2 (04:52→15:14)
[2021-02-04] MEDS: PIPERACILLIN/TAZOBACTAM 3,375 MG in SODIUM CHLORIDE 0.9% 100 ML IV SCH ×3 (06:51→22:54)
[2021-02-04] MEDS: ALBUTEROL/IPRATROPIUM 3 ML NEB RESP TX SCH ×3 (06:53→19:28)
[2021-02-04 07:31] LABS: Bilirubin,Total 0.9 MG/DL (0.20-1.00); Calcium 8.1 MG/DL (8.5-10.1); Osmolality,Calculated 256.2 MOS/KG (273-304); Potassium 4.1 MMOL/L (3.5-5.1)
[2021-02-04] MEDS ORDERED: FUROSEMIDE 40 MG/4 ML VIAL IV STA ×2 (11:31)
[2021-02-04] MEDS: AMIODARONE 200 MG TABLET PO SCH (11:40)
[2021-02-04] MEDS: ASPIRIN EC 81 MG TABLET PO SCH (11:40)
[2021-02-04] MEDS: CETIRIZINE 10 MG TABLET PO SCH (11:40)
[2021-02-04] MEDS: ATORVASTATIN 40 MG TABLET PO SCH (11:40)
[2021-02-04] MEDS: VANCOMYCIN INJ 1,000 MG in SODIUM CHLORIDE 0.9% 250 ML IV SCH (15:16)
[2021-02-04] MEDS: GABAPENTIN 100 MG CAPSULE PO SCH ×2 (15:50→22:57)
[2021-02-04] MEDS ORDERED: PANTOPRAZOLE 40 MG VIAL IV ONE (16:41)
[2021-02-04] MEDS: FUROSEMIDE 40 MG/4 ML VIAL IV SCH (17:05)
[2021-02-04] MEDS: FERROUS SULFATE 325 MG TABLET PO SCH (17:05)
[2021-02-04 17:08] LABS: Hematocrit 28.7 VOL% (35.7-47.0); Hemoglobin 8.9 GM/DL (12.0-16.0)
[2021-02-04] MEDS: DOXYCYCLINE HYCLATE INJ 100 MG in SODIUM CHLORIDE 0.9% 100 ML IV SCH (18:31)
[2021-02-04] MEDS: PANTOPRAZOLE 40 MG VIAL IV SCH (22:56)
[2021-02-04] MEDS: SODIUM BICARBONATE 650 MG TABLET PO SCH (22:57)
[2021-02-05] MEDS: ALBUTEROL/IPRATROPIUM 3 ML NEB RESP TX SCH ×4 (00:04→19:37)
[2021-02-05] MEDS: VANCOMYCIN INJ 1,000 MG in SODIUM CHLORIDE 0.9% 250 ML IV SCH ×2 (02:22→16:00)
[2021-02-05] MEDS: DOXYCYCLINE HYCLATE INJ 100 MG in SODIUM CHLORIDE 0.9% 100 ML IV SCH ×2 (05:43→21:59)
[2021-02-05 06:46] LABS: Calcium 7.9 MG/DL (8.5-10.1); Osmolality,Calculated 262.7 MOS/KG (273-304); Potassium 3.3 MMOL/L (3.5-5.1)
[2021-02-05] MEDS ORDERED: PANTOPRAZOLE 40 MG TABLET PO SCH (09:00)
[2021-02-05] MEDS: ATORVASTATIN 40 MG TABLET PO SCH (12:13)
[2021-02-05] MEDS: AMIODARONE 200 MG TABLET PO SCH (12:13)
[2021-02-05] MEDS: MULTIVITAMIN (CENTRUM) TABLET PO SCH (12:14)
[2021-02-05] MEDS: CALCIUM (CARBONATE)/VITAMIN D 600 MG-400 UNIT TABLET PO SCH (12:14)
[2021-02-05] MEDS: ASPIRIN EC 81 MG TABLET PO SCH (12:14)
[2021-02-05] MEDS: FERROUS SULFATE 325 MG TABLET PO SCH (12:15)
[2021-02-05] MEDS: PIPERACILLIN/TAZOBACTAM 3,375 MG in SODIUM CHLORIDE 0.9% 100 ML IV SCH ×2 (12:15→18:05)
[2021-02-05] MEDS: GABAPENTIN 100 MG CAPSULE PO SCH ×3 (12:15→22:03)
[2021-02-05] MEDS: CETIRIZINE 10 MG TABLET PO SCH (12:16)
[2021-02-05] MEDS: SODIUM BICARBONATE 650 MG TABLET PO SCH ×2 (12:16→22:03)
[2021-02-05] MEDS: POTASSIUM CHLORIDE RIDER 10 MEQ/100 ML PREMIX IV SCH ×2 (12:27→18:45)
[2021-02-05] MEDS: FUROSEMIDE 40 MG/4 ML VIAL IV SCH ×2 (12:27→17:45)
[2021-02-05] MEDS: PANTOPRAZOLE 40 MG VIAL IV SCH ×2 (12:28→22:02)
[2021-02-05] MEDS ORDERED: POTASSIUM CHLORIDE RIDER 10 MEQ/100 ML PREMIX IV SCH ×2 (16:00→17:30)
[2021-02-05] MEDS: ZINC OXIDE PASTE 113 GM TUBE TOP SCH (22:03)
[2021-02-06] MEDS: ALBUTEROL/IPRATROPIUM 3 ML NEB RESP TX SCH ×4 (00:40→19:33)
[2021-02-06] MEDS: VANCOMYCIN INJ 1,000 MG in SODIUM CHLORIDE 0.9% 250 ML IV SCH (02:41)
[2021-02-06] MEDS: PIPERACILLIN/TAZOBACTAM 3,375 MG in SODIUM CHLORIDE 0.9% 100 ML IV SCH ×2 (04:52→13:05)
[2021-02-06 05:49] LABS: Calcium 7.2 MG/DL (8.5-10.1); Osmolality,Calculated 267.2 MOS/KG (273-304); Potassium 3.2 MMOL/L (3.5-5.1)
[2021-02-06 06:33] LABS: Eosinophils # 0.2 10*3/uL (0.0-0.87); Eosinophils % 1.5 % (0.00-10.9); Hemoglobin 8.6 GM/DL (12.0-16.0); Immature Granulocytes % 0.4 %; Immature Granulocytes Absolute 0.04 #; Lymphocytes % 9.5 % (21.3-54.2); Mean Corpuscular HGB Conc 31.9 GM/DL (32-36); Mean Corpuscular Volume 82.8 FL (87-102); Mean Platelet Volume 9.9 FL (9.6-12.0); Monocytes % 10.5 % (1.7-12.7); Neutrophils % 78.1 % (38.7-73.9); Platelet Count 290 T/CUMM (130-400); Red Blood Count 3.26 MC/CUMM (3.8-5.5); Red Cell Distribution Width 19.2 % (9.3-17.3); White Blood Count 10.4 T/CUMM (4-12)
[2021-02-06] MEDS: LACTATED RINGERS 1,000 ML IV SCH (07:24)
[2021-02-06] MEDS ORDERED: MAGNESIUM SULF RIDER 2 GM/50 ML PREMIX IV ONE (08:12)
[2021-02-06] MEDS ORDERED: POTASSIUM CHLORIDE 20 MEQ TABLET PO ONE (08:12)
[2021-02-06] MEDS ORDERED: propofoL 200 MG/20 ML VIAL IV ONE (08:14)
[2021-02-06] MEDS ORDERED: LIDOCAINE 2% 5 ML VIAL ONE (08:14)
[2021-02-06] MEDS ORDERED: ETOMIDATE 20 MG/10 ML VIAL IV ONE (08:14)
[2021-02-06] MEDS: ASPIRIN EC 81 MG TABLET PO SCH (10:13)
[2021-02-06] MEDS: CALCIUM (CARBONATE)/VITAMIN D 600 MG-400 UNIT TABLET PO SCH (10:14)
[2021-02-06] MEDS: AMIODARONE 200 MG TABLET PO SCH (10:14)
[2021-02-06] MEDS: MULTIVITAMIN (CENTRUM) TABLET PO SCH (10:14)
[2021-02-06] MEDS: ATORVASTATIN 40 MG TABLET PO SCH (10:14)
[2021-02-06] MEDS: GABAPENTIN 100 MG CAPSULE PO SCH ×3 (10:15→21:59)
[2021-02-06] MEDS: SODIUM BICARBONATE 650 MG TABLET PO SCH ×2 (10:15→21:59)
[2021-02-06] MEDS: CETIRIZINE 10 MG TABLET PO SCH (10:15)
[2021-02-06] MEDS: FUROSEMIDE 40 MG/4 ML VIAL IV SCH ×2 (10:16→16:41)
[2021-02-06] MEDS: PANTOPRAZOLE 40 MG VIAL IV SCH ×2 (10:18→21:58)
[2021-02-06] MEDS ORDERED: MYLANTA/LIDO VISC/DIPH 300 ML BOTTLE SWISH/SWAL PRN (10:23)
[2021-02-06] MEDS: ZINC OXIDE PASTE 113 GM TUBE TOP SCH ×2 (10:26→21:59)
[2021-02-06] MEDS: DOXYCYCLINE HYCLATE INJ 100 MG in SODIUM CHLORIDE 0.9% 100 ML IV SCH (10:27)
[2021-02-06] MEDS: POTASSIUM CHLORIDE RIDER 10 MEQ/100 ML PREMIX IV SCH ×4 (13:03→21:58)
[2021-02-06] MEDS: NYSTATIN 500,000 UNIT/5 ML UDCUP SWISH/SWAL SCH ×3 (15:31→21:59)
[2021-02-07] MEDS: ALBUTEROL/IPRATROPIUM 3 ML NEB RESP TX SCH ×4 (01:33→21:03)
[2021-02-07] MEDS: POTASSIUM CHLORIDE RIDER 10 MEQ/100 ML PREMIX IV SCH ×2 (04:08→07:54)
[2021-02-07 05:58] LABS: Calcium 7.4 MG/DL (8.5-10.1); Osmolality,Calculated 266.2 MOS/KG (273-304); Potassium 2.9 MMOL/L (3.5-5.1)
[2021-02-07] MEDS: DOXYCYCLINE HYCLATE INJ 100 MG in SODIUM CHLORIDE 0.9% 100 ML IV SCH ×3 (06:52→20:47)
[2021-02-07] MEDS: PIPERACILLIN/TAZOBACTAM 3,375 MG in SODIUM CHLORIDE 0.9% 100 ML IV SCH ×3 (06:52→22:22)
[2021-02-07] MEDS: LACTATED RINGERS 1,000 ML IV SCH (08:07)
[2021-02-07] MEDS: NYSTATIN 500,000 UNIT/5 ML UDCUP SWISH/SWAL SCH ×4 (09:01→20:52)
[2021-02-07] MEDS: GABAPENTIN 100 MG CAPSULE PO SCH ×3 (09:01→20:50)
[2021-02-07] MEDS: ZINC OXIDE PASTE 113 GM TUBE TOP SCH ×2 (09:01→20:50)
[2021-02-07] MEDS: CALCIUM (CARBONATE)/VITAMIN D 600 MG-400 UNIT TABLET PO SCH (09:02)
[2021-02-07] MEDS: AMIODARONE 200 MG TABLET PO SCH (09:02)
[2021-02-07] MEDS: SODIUM BICARBONATE 650 MG TABLET PO SCH ×2 (09:02→20:50)
[2021-02-07] MEDS: ASPIRIN EC 81 MG TABLET PO SCH (09:02)
[2021-02-07] MEDS: PANTOPRAZOLE 40 MG TABLET PO SCH ×2 (09:02→20:50)
[2021-02-07] MEDS: MULTIVITAMIN (CENTRUM) TABLET PO SCH (09:02)
[2021-02-07] MEDS: CETIRIZINE 10 MG TABLET PO SCH (09:02)
[2021-02-07] MEDS: ATORVASTATIN 40 MG TABLET PO SCH (09:02)
[2021-02-07] MEDS: POTASSIUM BICARB EFFERVESCENT 20 MEQ TAB.EFF PO SCH ×3 (09:03→20:54)
[2021-02-07] MEDS: FUROSEMIDE 40 MG/4 ML VIAL IV SCH ×2 (09:03→15:20)
[2021-02-07 14:56] LABS: QuantiFERON-Tb Gold Pl Negative (Negative); TB2 Ag Minus Result 0 IU/mL
[2021-02-07] MEDS ORDERED: POLYETHYLENE GLYCOL POWDER 255 GM BOTTLE PO ONE (18:00)
[2021-02-07] MEDS ORDERED: MAGNESIUM CITRATE 300 ML BOTTLE PO ONE (21:00)
[2021-02-08] MEDS: ALBUTEROL/IPRATROPIUM 3 ML NEB RESP TX SCH ×4 (00:30→19:58)
[2021-02-08] MEDS: PIPERACILLIN/TAZOBACTAM 3,375 MG in SODIUM CHLORIDE 0.9% 100 ML IV SCH ×2 (06:02→16:08)
[2021-02-08 06:22] LABS: Basophils % 0.2 % (0.0-0.8); Eosinophils # 0.3 10*3/uL (0.0-0.87); Eosinophils % 2.9 % (0.00-10.9); Hematocrit 28.6 VOL% (35.7-47.0); Hemoglobin 8.8 GM/DL (12.0-16.0); Immature Granulocytes % 0.6 %; Immature Granulocytes Absolute 0.05 #; Lymphocytes % 10.7 % (21.3-54.2); Mean Corpuscular HGB Conc 30.8 GM/DL (32-36); Mean Corpuscular Volume 84.9 FL (87-102); Mean Platelet Volume 9.6 FL (9.6-12.0); Monocytes % 13.2 % (1.7-12.7); Neutrophils % 72.4 % (38.7-73.9); Platelet Count 274 T/CUMM (130-400); Red Blood Count 3.37 MC/CUMM (3.8-5.5); Red Cell Distribution Width 19.3 % (9.3-17.3); White Blood Count 8.9 T/CUMM (4-12)
[2021-02-08 07:10] LABS: Calcium 7.6 MG/DL (8.5-10.1); Osmolality,Calculated 261.7 MOS/KG (273-304); Potassium 2.9 MMOL/L (3.5-5.1)
[2021-02-08] MEDS: POTASSIUM CHLORIDE RIDER 10 MEQ/100 ML PREMIX IV SCH ×4 (07:33→11:58)
[2021-02-08] MEDS: ZINC OXIDE PASTE 113 GM TUBE TOP SCH ×2 (08:20→21:13)
[2021-02-08] MEDS ORDERED: ETOMIDATE 20 MG/10 ML VIAL IV ONE (09:17)
[2021-02-08] MEDS ORDERED: LIDOCAINE 2% 5 ML VIAL ONE (09:17)
[2021-02-08] MEDS ORDERED: PHENYLEPHRINE 1 MG/10 ML SYRINGE IV ONE (09:17)
[2021-02-08] MEDS ORDERED: propofoL 200 MG/20 ML VIAL IV ONE (09:17)
[2021-02-08] MEDS: PANTOPRAZOLE 40 MG TABLET PO SCH ×2 (10:43→21:13)
[2021-02-08] MEDS: POTASSIUM BICARB EFFERVESCENT 20 MEQ TAB.EFF PO SCH ×3 (10:43→21:01)
[2021-02-08] MEDS: CALCIUM (CARBONATE)/VITAMIN D 600 MG-400 UNIT TABLET PO SCH (10:44)
[2021-02-08] MEDS: GABAPENTIN 100 MG CAPSULE PO SCH ×3 (10:44→21:01)
[2021-02-08] MEDS: ASPIRIN EC 81 MG TABLET PO SCH (10:44)
[2021-02-08] MEDS: CETIRIZINE 10 MG TABLET PO SCH (10:44)
[2021-02-08] MEDS: ATORVASTATIN 40 MG TABLET PO SCH (10:44)
[2021-02-08] MEDS: MULTIVITAMIN (CENTRUM) TABLET PO SCH (10:44)
[2021-02-08] MEDS: AMIODARONE 200 MG TABLET PO SCH (10:44)
[2021-02-08] MEDS: SODIUM BICARBONATE 650 MG TABLET PO SCH ×2 (10:44→21:01)
[2021-02-08] MEDS: NYSTATIN 500,000 UNIT/5 ML UDCUP SWISH/SWAL SCH ×4 (10:45→21:12)
[2021-02-08] MEDS: ONDANSETRON 4 MG/2 ML VIAL IV PRN ×2 (10:45→13:57)
[2021-02-08] MEDS: LINACLOTIDE 145 MCG CAPSULE PO SCH (10:45)
[2021-02-08] MEDS: FUROSEMIDE 40 MG/4 ML VIAL IV SCH ×2 (10:46→16:07)
[2021-02-08] MEDS ORDERED: oxyCODONE/ACETAMINOPHEN 5-325 MG TABLET PO ONE (11:25)
[2021-02-08] MEDS: DOXYCYCLINE HYCLATE INJ 100 MG in SODIUM CHLORIDE 0.9% 100 ML IV SCH ×2 (11:38→22:09)
[2021-02-08] MEDS ORDERED: PROMETHAZINE 25 MG/1 ML VIAL IM ONE (12:17)
[2021-02-08] MEDS ORDERED: ALUMINUM/MAGNES/SIMETH MAX STR 30 ML UDCUP PO PRN (13:47)
[2021-02-08] MEDS ORDERED: oxyCODONE IR 5 MG TABLET PO PRN (13:49)
[2021-02-08] MEDS ORDERED: EPINEPHrine 1 MG/ML VIAL ONE (14:41)
[2021-02-09] MEDS: PIPERACILLIN/TAZOBACTAM 3,375 MG in SODIUM CHLORIDE 0.9% 100 ML IV SCH ×3 (00:16→13:07)
[2021-02-09] MEDS: ALBUTEROL/IPRATROPIUM 3 ML NEB RESP TX SCH ×5 (01:44→19:35)
[2021-02-09 05:24] LABS: Basophils % 0.2 % (0.0-0.8); Eosinophils % 0.2 % (0.00-10.9); Hematocrit 28.8 VOL% (35.7-47.0); Hemoglobin 8.8 GM/DL (12.0-16.0); Immature Granulocytes % 0.6 %; Lymphocytes # 1.1 10*3/uL (1.4-4.0); Mean Corpuscular HGB Conc 30.6 GM/DL (32-36); Mean Corpuscular Volume 85.7 FL (87-102); Mean Platelet Volume 9.7 FL (9.6-12.0); Monocytes % 5.2 % (1.7-12.7); Neutrophils % 86.8 % (38.7-73.9); Platelet Count 255 T/CUMM (130-400); Red Blood Count 3.36 MC/CUMM (3.8-5.5); Red Cell Distribution Width 19.1 % (9.3-17.3); White Blood Count 15.4 T/CUMM (4-12)
[2021-02-09 05:44] LABS: Calcium 7.8 MG/DL (8.5-10.1); Potassium 2.7 MMOL/L (3.5-5.1)
[2021-02-09] MEDS: FUROSEMIDE 40 MG/4 ML VIAL IV SCH ×2 (09:13→16:50)
[2021-02-09] MEDS: DOXYCYCLINE HYCLATE INJ 100 MG in SODIUM CHLORIDE 0.9% 100 ML IV SCH ×2 (09:13→23:37)
[2021-02-09] MEDS: LINACLOTIDE 145 MCG CAPSULE PO SCH (09:13)
[2021-02-09] MEDS: CALCIUM (CARBONATE)/VITAMIN D 600 MG-400 UNIT TABLET PO SCH (09:13)
[2021-02-09] MEDS: ASPIRIN EC 81 MG TABLET PO SCH (09:13)
[2021-02-09] MEDS: MULTIVITAMIN (CENTRUM) TABLET PO SCH (09:13)
[2021-02-09] MEDS: CETIRIZINE 10 MG TABLET PO SCH (09:14)
[2021-02-09] MEDS: POTASSIUM CHLORIDE 20 MEQ TABLET PO SCH ×2 (09:14→21:34)
[2021-02-09] MEDS: ZINC OXIDE PASTE 113 GM TUBE TOP SCH ×2 (09:14→21:33)
[2021-02-09] MEDS: PANTOPRAZOLE 40 MG TABLET PO SCH ×2 (09:14→21:34)
[2021-02-09] MEDS: GABAPENTIN 100 MG CAPSULE PO SCH ×3 (09:14→21:35)
[2021-02-09] MEDS: ATORVASTATIN 40 MG TABLET PO SCH (09:14)
[2021-02-09] MEDS: AMIODARONE 200 MG TABLET PO SCH (09:14)
[2021-02-09] MEDS: SODIUM BICARBONATE 650 MG TABLET PO SCH ×2 (09:14→21:35)
[2021-02-09] MEDS: NYSTATIN 500,000 UNIT/5 ML UDCUP SWISH/SWAL SCH ×4 (09:14→21:33)
[2021-02-09] MEDS: POTASSIUM CHLORIDE RIDER 10 MEQ/100 ML PREMIX IV PRN ×5 (11:00→15:29)
[2021-02-09] MEDS ORDERED: TUBERCULIN SKIN TEST 0.1 ML SYRINGE INTRADERM ONE (14:17)
[2021-02-10] MEDS: ALBUTEROL/IPRATROPIUM 3 ML NEB RESP TX SCH ×4 (00:50→21:50)
[2021-02-10 07:05] LABS: Basophils % 0.1 % (0.0-0.8); Eosinophils # 0.1 10*3/uL (0.0-0.87); Eosinophils % 0.6 % (0.00-10.9); Hematocrit 26.4 VOL% (35.7-47.0); Hemoglobin 8.1 GM/DL (12.0-16.0); Immature Granulocytes % 0.6 %; Immature Granulocytes Absolute 0.07 #; Lymphocytes # 0.9 10*3/uL (1.4-4.0); Lymphocytes % 8.1 % (21.3-54.2); Mean Corpuscular HGB Conc 30.7 GM/DL (32-36); Mean Corpuscular Volume 84.6 FL (87-102); Monocytes % 7.3 % (1.7-12.7); Neutrophils % 83.3 % (38.7-73.9); Platelet Count 249 T/CUMM (130-400); Red Blood Count 3.12 MC/CUMM (3.8-5.5); White Blood Count 10.8 T/CUMM (4-12)
[2021-02-10 07:32] LABS: Osmolality,Calculated 263.5 MOS/KG (273-304); Potassium 2.9 MMOL/L (3.5-5.1)
[2021-02-10] MEDS: POTASSIUM CHLORIDE 20 MEQ TABLET PO SCH ×2 (09:23→21:22)
[2021-02-10] MEDS: POTASSIUM CHLORIDE 20 MEQ TABLET PO PRN ×2 (09:23→14:36)
[2021-02-10] MEDS: CETIRIZINE 10 MG TABLET PO SCH (09:23)
[2021-02-10] MEDS: CALCIUM (CARBONATE)/VITAMIN D 600 MG-400 UNIT TABLET PO SCH (09:23)
[2021-02-10] MEDS: FUROSEMIDE 40 MG TABLET PO SCH (09:24)
[2021-02-10] MEDS: ATORVASTATIN 40 MG TABLET PO SCH (09:24)
[2021-02-10] MEDS: SODIUM BICARBONATE 650 MG TABLET PO SCH ×2 (09:24→21:22)
[2021-02-10] MEDS: PANTOPRAZOLE 40 MG TABLET PO SCH ×2 (09:24→21:23)
[2021-02-10] MEDS: GABAPENTIN 100 MG CAPSULE PO SCH ×3 (09:24→21:23)
[2021-02-10] MEDS: ASPIRIN EC 81 MG TABLET PO SCH (09:24)
[2021-02-10] MEDS: MULTIVITAMIN (CENTRUM) TABLET PO SCH (09:24)
[2021-02-10] MEDS: LINACLOTIDE 145 MCG CAPSULE PO SCH (09:24)
[2021-02-10] MEDS: DOXYCYCLINE HYCLATE INJ 100 MG in SODIUM CHLORIDE 0.9% 100 ML IV SCH (09:25)
[2021-02-10] MEDS: AMIODARONE 200 MG TABLET PO SCH (09:25)
[2021-02-10] MEDS: NYSTATIN 500,000 UNIT/5 ML UDCUP SWISH/SWAL SCH ×4 (09:25→21:22)
[2021-02-10] MEDS: ZINC OXIDE PASTE 113 GM TUBE TOP SCH ×2 (09:25→21:22)
[2021-02-10] MEDS: FUROSEMIDE 40 MG/4 ML VIAL IV SCH (10:04)
[2021-02-10] MEDS ORDERED: POTASSIUM CHLORIDE INJ 40 MEQ in SODIUM CHLORIDE 0.9% 500 ML IV SCH (13:00)
[2021-02-10] MEDS: MAGNESIUM OXIDE 400 MG TABLET PO SCH ×2 (14:36→21:22)
[2021-02-11 01:43] LABS: Calcium 8.4 MG/DL (8.5-10.1); Osmolality,Calculated 269.2 MOS/KG (273-304)
[2021-02-11] MEDS: ALBUTEROL/IPRATROPIUM 3 ML NEB RESP TX SCH ×4 (02:05→19:07)
[2021-02-11] MEDS: POTASSIUM CHLORIDE 20 MEQ TABLET PO SCH ×2 (09:17→21:32)
[2021-02-11] MEDS: NYSTATIN 500,000 UNIT/5 ML UDCUP SWISH/SWAL SCH ×4 (09:17→21:32)
[2021-02-11] MEDS: FUROSEMIDE 40 MG TABLET PO SCH (09:18)
[2021-02-11] MEDS: ASPIRIN EC 81 MG TABLET PO SCH (09:18)
[2021-02-11] MEDS: CALCIUM (CARBONATE)/VITAMIN D 600 MG-400 UNIT TABLET PO SCH (09:18)
[2021-02-11] MEDS: AMIODARONE 200 MG TABLET PO SCH (09:18)
[2021-02-11] MEDS: GABAPENTIN 100 MG CAPSULE PO SCH ×3 (09:18→21:33)
[2021-02-11] MEDS: CETIRIZINE 10 MG TABLET PO SCH (09:18)
[2021-02-11] MEDS: SODIUM BICARBONATE 650 MG TABLET PO SCH ×2 (09:18→21:32)
[2021-02-11] MEDS: MULTIVITAMIN (CENTRUM) TABLET PO SCH (09:19)
[2021-02-11] MEDS: PANTOPRAZOLE 40 MG TABLET PO SCH ×2 (09:19→21:32)
[2021-02-11] MEDS: LINACLOTIDE 145 MCG CAPSULE PO SCH (09:19)
[2021-02-11] MEDS: ZINC OXIDE PASTE 113 GM TUBE TOP SCH ×2 (09:19→21:33)
[2021-02-11] MEDS: ATORVASTATIN 40 MG TABLET PO SCH (09:19)
[2021-02-11] MEDS: cefOXitin 1,000 MG in SODIUM CHLORIDE 0.9% 100 ML IV SCH (18:52)
[2021-02-12] MEDS: ALBUTEROL/IPRATROPIUM 3 ML NEB RESP TX SCH ×4 (00:48→19:35)
[2021-02-12] MEDS: cefOXitin 1,000 MG in SODIUM CHLORIDE 0.9% 100 ML IV SCH ×4 (02:43→17:53)
[2021-02-12 05:27] LABS: Basophils % 0.3 % (0.0-0.8); Eosinophils # 0.1 10*3/uL (0.0-0.87); Eosinophils % 1.6 % (0.00-10.9); Hematocrit 28.1 VOL% (35.7-47.0); Hemoglobin 8.8 GM/DL (12.0-16.0); Immature Granulocytes % 0.5 %; Immature Granulocytes Absolute 0.04 #; Lymphocytes # 1.1 10*3/uL (1.4-4.0); Lymphocytes % 12.3 % (21.3-54.2); Mean Corpuscular HGB Conc 31.3 GM/DL (32-36); Mean Corpuscular Volume 84.1 FL (87-102); Mean Platelet Volume 9.9 FL (9.6-12.0); Monocytes % 7.8 % (1.7-12.7); Neutrophils % 77.5 % (38.7-73.9); Platelet Count 285 T/CUMM (130-400); Red Blood Count 3.34 MC/CUMM (3.8-5.5); Red Cell Distribution Width 19.5 % (9.3-17.3); White Blood Count 8.9 T/CUMM (4-12)
[2021-02-12 05:32] LABS: Basophils % 0.3 % (0.0-0.8); Eosinophils # 0.1 10*3/uL (0.0-0.87); Eosinophils % 1.4 % (0.00-10.9); Hematocrit 27.9 VOL% (35.7-47.0); Hemoglobin 8.7 GM/DL (12.0-16.0); Immature Granulocytes % 0.6 %; Immature Granulocytes Absolute 0.05 #; Lymphocytes # 1.1 10*3/uL (1.4-4.0); Mean Corpuscular HGB Conc 31.2 GM/DL (32-36); Mean Platelet Volume 10.2 FL (9.6-12.0); Neutrophils % 77.7 % (38.7-73.9); Platelet Count 278 T/CUMM (130-400); Red Blood Count 3.32 MC/CUMM (3.8-5.5); Red Cell Distribution Width 19.3 % (9.3-17.3); White Blood Count 9.1 T/CUMM (4-12)
[2021-02-12 05:51] LABS: Folate 14.86 NG/ML (5.38-24.0); Vitamin B12 708 PG/ML (211-911)
[2021-02-12 05:55] LABS: Calcium 8.7 MG/DL (8.5-10.1); Osmolality,Calculated 275.8 MOS/KG (273-304); Potassium 4.4 MMOL/L (3.5-5.1)
[2021-02-12 05:58] LABS: % Iron Saturation 13.8 % (18-50); Ferritin 95.4 ng/ml (8-252)
[2021-02-12 06:59] LABS: Sedimentation Rate-Westergren 24 MM/HR (0-30)
[2021-02-12] MEDS: CALCIUM (CARBONATE)/VITAMIN D 600 MG-400 UNIT TABLET PO SCH (08:38)
[2021-02-12] MEDS: AMIODARONE 200 MG TABLET PO SCH (08:38)
[2021-02-12] MEDS: SODIUM BICARBONATE 650 MG TABLET PO SCH ×2 (08:38→20:13)
[2021-02-12] MEDS: CETIRIZINE 10 MG TABLET PO SCH (08:38)
[2021-02-12] MEDS: POTASSIUM CHLORIDE 20 MEQ TABLET PO SCH ×2 (08:38→20:13)
[2021-02-12] MEDS: MULTIVITAMIN (CENTRUM) TABLET PO SCH (08:38)
[2021-02-12] MEDS: GABAPENTIN 100 MG CAPSULE PO SCH ×3 (08:38→20:13)
[2021-02-12] MEDS: ASPIRIN EC 81 MG TABLET PO SCH (08:38)
[2021-02-12] MEDS: FUROSEMIDE 40 MG TABLET PO SCH (08:39)
[2021-02-12] MEDS: ATORVASTATIN 40 MG TABLET PO SCH (08:39)
[2021-02-12] MEDS: PANTOPRAZOLE 40 MG TABLET PO SCH ×2 (08:39→20:13)
[2021-02-12] MEDS: LINACLOTIDE 145 MCG CAPSULE PO SCH (08:39)
[2021-02-12] MEDS: NYSTATIN 500,000 UNIT/5 ML UDCUP SWISH/SWAL SCH ×4 (08:39→20:13)
[2021-02-12] MEDS: ZINC OXIDE PASTE 113 GM TUBE TOP SCH ×2 (09:20→20:14)
[2021-02-13] MEDS: cefOXitin 1,000 MG in SODIUM CHLORIDE 0.9% 100 ML IV SCH ×3 (00:08→12:02)
[2021-02-13] MEDS: ALBUTEROL/IPRATROPIUM 3 ML NEB RESP TX SCH ×3 (00:42→13:56)
[2021-02-13 05:06] LABS: Basophils % 0.3 % (0.0-0.8); Eosinophils # 0.2 10*3/uL (0.0-0.87); Eosinophils % 1.8 % (0.00-10.9); Hematocrit 28.4 VOL% (35.7-47.0); Hemoglobin 8.7 GM/DL (12.0-16.0); Immature Granulocytes % 1.4 %; Immature Granulocytes Absolute 0.13 #; Lymphocytes # 1.4 10*3/uL (1.4-4.0); Lymphocytes % 14.9 % (21.3-54.2); Mean Corpuscular HGB Conc 30.6 GM/DL (32-36); Mean Corpuscular Volume 83.8 FL (87-102); Mean Platelet Volume 10.1 FL (9.6-12.0); Neutrophils % 72.6 % (38.7-73.9); Platelet Count 285 T/CUMM (130-400); Red Blood Count 3.39 MC/CUMM (3.8-5.5); Red Cell Distribution Width 19.3 % (9.3-17.3); White Blood Count 9.3 T/CUMM (4-12)
[2021-02-13 05:25] LABS: Calcium 8.7 MG/DL (8.5-10.1); Osmolality,Calculated 269.2 MOS/KG (273-304); Potassium 4.3 MMOL/L (3.5-5.1)
[2021-02-13] MEDS: NYSTATIN 500,000 UNIT/5 ML UDCUP SWISH/SWAL SCH (08:46)
[2021-02-13] MEDS: LINACLOTIDE 145 MCG CAPSULE PO SCH (08:46)
[2021-02-13] MEDS: PANTOPRAZOLE 40 MG TABLET PO SCH (08:47)
[2021-02-13] MEDS: ZINC OXIDE PASTE 113 GM TUBE TOP SCH (08:47)
[2021-02-13] MEDS: POTASSIUM CHLORIDE 20 MEQ TABLET PO SCH (08:47)
[2021-02-13] MEDS: ASPIRIN EC 81 MG TABLET PO SCH (08:47)
[2021-02-13] MEDS: GABAPENTIN 100 MG CAPSULE PO SCH (08:47)
[2021-02-13] MEDS: MULTIVITAMIN (CENTRUM) TABLET PO SCH (08:47)
[2021-02-13] MEDS: CALCIUM (CARBONATE)/VITAMIN D 600 MG-400 UNIT TABLET PO SCH (08:47)
[2021-02-13] MEDS: SODIUM BICARBONATE 650 MG TABLET PO SCH (08:47)
[2021-02-13] MEDS: ATORVASTATIN 40 MG TABLET PO SCH (08:48)
[2021-02-13] MEDS: AMIODARONE 200 MG TABLET PO SCH (08:48)
[2021-02-13] MEDS: CETIRIZINE 10 MG TABLET PO SCH (08:48)
[2021-02-13] MEDS: FUROSEMIDE 40 MG TABLET PO SCH (08:48)
[2021-02-13 10:11] LABS: Hemoglobin A1 (Alkaline) 97.7 % (96.5-98.5); Hemoglobin A2 (Alkaline) 2.3 % (1.5-3.5)
[2021-02-13 12:44] VITALS: BP 118/64
[2021-02-13] MEDS ORDERED: carvediloL 3.125 MG TABLET PO SCH (21:00)
[2021-02-13] MEDS ORDERED: AMOXICILLIN/CLAV 500 MG TABLET PO SCH (21:00)
== END 2021-02-13 14:32 | disposition home health service (06) | DRG 291 ==
LOC: EDBD → EDUNIT# → N.ED 18:17 → N.EDINP 02-04 01:40 → SUATTDRO 02-04 01:40 → N.EDINP 02-04 16:00 → N.TELEN 02-04 16:40
PROVIDERS: ADMIT Internal Medicine; ATTEND Hospitalist

== ENCOUNTER 2021-02-19 18:06 | Inpatient (IN) ==
[2021-02-19] MEDS ORDERED: methylPREDNISolone SOD SUC 125 MG/2 ML VIAL IV STA (18:53)
[2021-02-19] MEDS ORDERED: ALBUTEROL/IPRATROPIUM 3 ML NEB RESP TX STA (18:53)
[2021-02-19 18:56] LABS: ABG Base Excess -1.9 MMOL/L (-2.5-2.5); ABG HCO3 22.7 MMOL/L (20-26); ABG Oxygen Saturation 85.8 % (95-100); ABG PCO2 57.1 MM HG (35-48); ABG PH 7.265 (7.35-7.45); ABG PO2 62.3 MM HG (80-95); ABG TCO2 24.1 MMOL/L (23-27)
[2021-02-19] MEDS ORDERED: FUROSEMIDE 40 MG/4 ML VIAL IV STA (18:58)
[2021-02-19] MEDS ORDERED: PIPERACILLIN/TAZOBACTAM 3,375 MG in SODIUM CHLORIDE 0.9% 100 ML IV STA (19:11)
[2021-02-19 19:19] LABS: Basophils % 0.3 % (0.0-0.8); Eosinophils % 0.1 % (0.00-10.9); Hematocrit 33.3 VOL% (35.7-47.0); Immature Granulocytes % 0.6 %; Immature Granulocytes Absolute 0.06 #; Lymphocytes # 1.1 10*3/uL (1.4-4.0); Lymphocytes % 10.4 % (21.3-54.2); Mean Corpuscular Volume 86.3 FL (87-102); Mean Platelet Volume 9.6 FL (9.6-12.0); Monocytes % 3.5 % (1.7-12.7); Neutrophils % 85.1 % (38.7-73.9); Platelet Count 440 T/CUMM (130-400); Red Blood Count 3.86 MC/CUMM (3.8-5.5); Red Cell Distribution Width 20.3 % (9.3-17.3); White Blood Count 10.3 T/CUMM (4-12)
[2021-02-19 19:28] LABS: INR 1.2; PT Patient Result 13.4 SECS (10.5-12.0)
[2021-02-19 19:40] LABS: Albumin 3.2 G/DL (3.4-5.0); Bilirubin,Total 1.3 MG/DL (0.20-1.00); Calcium 8.6 MG/DL (8.5-10.1); Osmolality,Calculated 271.2 MOS/KG (273-304); Potassium 4.3 MMOL/L (3.5-5.1); Total Protein 6.5 G/DL (6.4-8.2)
[2021-02-19] MEDS ORDERED: GLUCAGON 1 MG VIAL IM PRN (21:42)
[2021-02-19] MEDS ORDERED: DEXTROSE 50% 25 GM/50 ML VIAL IV PRN (21:42)
[2021-02-20] MEDS ORDERED: MAGNESIUM SULF RIDER 2 GM/50 ML PREMIX IV ONE (00:05)
[2021-02-20 01:13] LABS: Basophils % 0.1 % (0.0-0.8); Hematocrit 33.7 VOL% (35.7-47.0); Hemoglobin 10.4 GM/DL (12.0-16.0); Immature Granulocytes % 0.8 %; Immature Granulocytes Absolute 0.08 #; Lymphocytes # 0.5 10*3/uL (1.4-4.0); Lymphocytes % 4.5 % (21.3-54.2); Mean Corpuscular HGB Conc 30.9 GM/DL (32-36); Mean Corpuscular Volume 85.1 FL (87-102); Neutrophils % 93.6 % (38.7-73.9); Platelet Count 387 T/CUMM (130-400); Red Blood Count 3.96 MC/CUMM (3.8-5.5); Red Cell Distribution Width 20.1 % (9.3-17.3); White Blood Count 10.1 T/CUMM (4-12)
[2021-02-20 01:35] LABS: Albumin 3.2 G/DL (3.4-5.0); Bilirubin,Total 1.6 MG/DL (0.20-1.00); Calcium 8.3 MG/DL (8.5-10.1); Osmolality,Calculated 269.2 MOS/KG (273-304); Potassium 3.7 MMOL/L (3.5-5.1); Total Protein 6.7 G/DL (6.4-8.2)
[2021-02-20 01:56] LABS: Lymphocytes 2 % (20-55); Platelet Estimate Normal; Segmented Neutrophils 96 % (50-85); Total Cells Counted 100
[2021-02-20] MEDS: PIPERACILLIN/TAZOBACTAM 3,375 MG in SODIUM CHLORIDE 0.9% 100 ML IV SCH ×2 (06:30→11:57)
[2021-02-20] MEDS ORDERED: FUROSEMIDE 40 MG/4 ML VIAL IV SCH (08:00)
[2021-02-20] MEDS ORDERED: AMIODARONE 200 MG TABLET PO SCH (09:00)
[2021-02-20] MEDS ORDERED: ATORVASTATIN 40 MG TABLET PO SCH (09:00)
[2021-02-20] MEDS ORDERED: carvediloL 3.125 MG TABLET PO SCH (09:00)
[2021-02-20] MEDS ORDERED: ASPIRIN EC 81 MG TABLET PO SCH (09:00)
[2021-02-20] MEDS ORDERED: PANTOPRAZOLE 40 MG VIAL IV SCH (09:00)
[2021-02-20 12:18] VITALS: BP 114/69
== END 2021-02-20 16:21 | disposition hospice, home (50) | DRG 291 ==
LOC: EDBD → EDUNIT# → N.ED 18:06 → N.EDINP 21:42 → N.TELEN 22:49
PROVIDERS: ADMIT Internal Medicine Geriatric Medicine; ATTEND Internal Medicine Geriatric Medicine